=== PATIENT | male | born 1940 | race Caucasian/White ===

== ENCOUNTER 2017-08-10 08:57 | Emergency (ER) | payer OTHER ==
[2017-08-10] MEDS ORDERED: NA CHLORIDE 0.9% 1,000 ML ONE (09:01)
[2017-08-10] MEDS ORDERED: ADENOSINE 6 MG/ 2ML VIAL IV ONE (09:01)
[2017-08-10 09:25] LABS: Absolute Lymphocytes (CBC) 4.4 K/uL (0.7-4.9); Absolute Monocytes 0.7 K/uL (0.1-1.3); Absolute Neutrophil 4.9 K/uL (1.8-8.0); Basophils % 1.3 % (0-1.3); Eosinophils % 12.5 % (0-4.4); Hematocrit 43.2 % (39.6-49.0); Lymphocytes % 37.7 % (15.3-44.8); MCH 29.9 pg (27.0-35.0); MCV 89.8 fL (80-100); MPV 8.4 fL (7.6-11.3); Monocytes % 6.2 % (3.3-12.3); RBC Red Blood Cell Count 4.81 M/uL (4.33-5.43)
[2017-08-10 09:40] LABS: Protime INR 1.03
[2017-08-10 09:50] LABS: Albumin 4.2 g/dL (3.2-5.5); Bilirubin Direct 0.1 mg/dL (0-0.2); Bilirubin Total 0.5 mg/dL (0.3-1.2); Magnesium 1.9 mg/dL (1.8-2.5); Protein, Total 7.7 g/dL (6.0-8.3)
--- NOTE | 2017-08-10 10:03 | EKG ---
Test Date: 2017-08-10 Test Time: 08:59:33 Trap Operator: MEASUREMENT RESULTS: Intervals: Rate: 155 HI: QRSD: 92 QT: 286 QTc: 459 [place]: P: HI: QRS: 40 T: 59 INTERPRETIVE STATEMENTS: Supraventricular tachycardia Nonspecific ST abnormality Abnormal ECG No previous ECG available for comparison Electronically Signed On 08-10-17 10:02:48 CDT by Chuck Chavez
[2017-08-10 10:13] LABS: Urine Blood NEGATIVE (NEG); Urine Glucose NEGATIVE (NEG); Urine Protein NEGATIVE (NEG); Urine Specific Gravity 1.015 (1.005-1.030); Urine pH 6.5 (5.0-7.0)
--- NOTE | 2017-08-10 10:13 | RAD REPORT ---
EXAM DESCRIPTION: RAD - Chest Single View - 08/10/2017 9:31 am CLINICAL HISTORY: Chest pain COMPARISON: None. TECHNIQUE: AP portable chest image was obtained 0926 hours . FINDINGS: Lungs are clear. No failure, infiltrate or pulmonary edema findings. Left subclavian pacem ray is in place. Tubing overlying the right chest presumed to be a MEDICAL PAYMENT POSTER shunt. Resuscitation paddle ov erlies the upper right chest. Heart and vasculature are normal. No measurable pleural effusion and no pneumothorax. No gross bony abnormality seen. No acute aortic findings suspected. IMPRESSION: No pulmonary edema, infiltrate or other acute cardiopulmonary finding.
--- NOTE | 2017-08-10 10:37 | ER ---
Nurse's Notes [facility] Name: Bony De Santiago Sr Age: 76 yrs Sex: Male : 1940 Arrival Date: 08/10/2017 Time: 09:01 Bed 4 Private MD: Unknown, Unknown Diagnosis: Supraventricular tachycardia Presentation: 08/10 09:00 Onset of symptoms was August 10, 2017 at 08:00. Risk Assessment: Do you want to hurt ae1 yourself or someone else? Patient reports no desire to harm self or others. Initial Sepsis Screen: Does the patient meet any 2 criteria? RR > 20 per min. HR > 90 bpm. Does the patient have a suspected source of infection? No. Patient's initial sepsis screen is negative. Care prior to arrival: Patient took "1/2" a lisinopril and all his daily medications. 09:21 Presenting complaint: Patient states: Patient reports chest pain and 'racing heart ae1 rate" Patient has pacemaker implanted. Transition of care: patient was not received from another setting of care. 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 - Social history:: Smoking status: Patient/guardian denies using tobacco, but has a distant history of tobacco abuse. - Ebola Screening: : Patient negative for fever greater than or equal to 101.5 degrees Fahrenheit, and additional compatible Ebola Virus Disease symptoms Patient denies exposure to infectious person. Screenin:27 Abuse screen: Denies threats or abuse. Nutritional screening: No deficits noted. rv Tuberculosis screening: No symptoms or risk factors identified. 09:39 Fall Risk Fall in past 12 months (25 points). No secondary diagnosis (0 pts). IV access ae1 (20 points). Ambulatory Aid- None/Bed Rest/Nurse Assist (0 pts). Gait- Normal/Bed Rest/Wheelchair (0 pts) Mental Status- Oriented to own ability (0 pts). Assessment: 09:00 General: Appears distressed, uncomfortable, Behavior is cooperative, anxious, restless. ae1 Pain: Complains of pain in chest. Neuro: Level of Consciousness is awake, alert, obeys commands, Oriented to person, place, time, situation. Cardiovascular: Heart tones S1 S2 present muffled Rhythm is SVT. Respiratory: Airway is patent Respiratory effort is even, unlabored, Respiratory pattern is regular, symmetrical, Breath sounds are clear bilaterally. GI: Abdomen is round non-distended, Bowel sounds present X 4 quads. Abd is soft and non tender X 4 quads. : No signs and/or symptoms were reported regarding the genitourinary system. EENT: Oral mucosa is dry. Poor dentition noted. Derm: Skin is pale. Musculoskeletal: No signs and/or symptoms reported regarding the musculoskeletal system. 09:31 Pain: Complains of pain in chest Pain does not radiate. Pain began suddenly, 1 hour ae1 ago. Cardiovascular: Reports chest pain, diaphoresis, palpitations, racing HR. 09:37 Reassessment: Patient appears in no apparent distress at this time. Patient states ae1 feeling better. Patient states symptoms have improved. Pain: Denies pain. 10:21 Reassessment: Patient appears in no apparent distress at this time. Patient and/or tw2 family updated on plan of care and expected duration. Pain level reassessed. Patient is alert, oriented x 3, equal unlabored respirations, skin warm/dry/pink. Patient states feeling better. Patient states symptoms have improved. Vital Signs: 08:57 BP 123 / 75; Pulse 159; Resp 30; Temp 97.9; Weight 90.26 kg (R); ae1 09:04 BP 137 / 70; Pulse 106; Resp 15; Pulse Ox 100% on 3 lpm NC; ae1 09:06 BP 127 / 63; Pulse 67; Resp 15; Pulse Ox 100% on 1 lpm NC; ae1 09:39 BP 116 / 63; Pulse 90; Resp 22 S; Pulse Ox 98% on 1 lpm NC; ae1 10:21 BP 104 / 55; Pulse 64; Resp 12; Pulse Ox 98% on R/A; tw2 ED Course: 08:59 batch dumper on. Pulse ox on. NIBP on. Defibrillator pads applied. rv 08:59 Inserted saline lock: 20 gauge in left antecubital area, using aseptic technique. Blood ae1 collected. 09:01 Patient arrived in ED. mr 09:02 Unknown, Unknown is Private Physician. mr 09:04 EKG done, by photographic technician. 3 09:10 Alexandre Musa PA is PHCP. jr8 09:10 Pablo Whitney MD is Attending Physician. jr8 09:12 David Sanchez, RN is Primary Nurse. ae1 09:22 Triage completed. ae1 09:27 X-ray completed. Portable x-ray completed in exam room. Patient tolerated procedure kp1 well. 09:27 Arm band placed on right wrist. EKG completed in triage. Results shown to MD. rv 09:28 Placed in gown. Bed in low position. Call light in reach. Side rails up X2. Adult w/ rv patient. 09:30 XRAY Chest (1 view) In Process Unspecified. EDMS 09:30 Oxygen administration via nasal cannula \\T\\ 1L/min. ae1 10:41 Awaiting transportation, Awaiting: prior to discharge. tw2 Administered Medications: 09:01 Drug: NS 0.9% 1000 ml Route: IV; Rate: 1000 ml; Site: left antecubital; ae1 09:55 Follow up: IV Status: Completed infusion ae1 09:01 Drug: Adenosine 12 mg Route: IVP; Site: left antecubital; ae1 09:16 Follow up: Response: Other; HR converted from SVT at 159 bpm, to 62 bpm. ae1 Intake: Outcome: 10:36 Discharge ordered by . jr8 11:22 Patient left the ED. tw2 Signatures: Dispatcher [employer] EDCA Valerie Mckeon mr Alexandre Musa PA PA jr8 Mari Fermin, RN RN tw2 David Sanchez, RN RN ae1 Luanne Dubois kp1 Radha Boyle 3 Alfredo Reyes RN RN rv Corrections: (The following items were deleted from the chart) 09:25 09:21 Acuity: JODIE 2 ae1 rv 09:29 08:57 Inserted saline lock: 20 gauge in left antecubital area, using aseptic technique. rv Blood collected. rv
--- NOTE | 2017-08-10 10:37 | EDPHYS ---
Physician Documentation [facility] Name: Boyn De Santiago Sr Age: 76 yrs Sex: Male : 1940 Arrival Date: 08/10/2017 Time: 09:01 Bed 4 Private MD: Unknown, Unknown ED Physician Pablo Whitney HPI: 08/10 09:14 This 76 yrs old Male presents to ER via Ambulatory with complaints of jr8 palpitations. 09:14 The patient presents with a history of heart racing. Context: The symptoms occur at jr8 rest. Onset: The symptoms/episode began/occurred acutely, today. Duration: The patient or guardian reports a single episode, that is still ongoing. Modifying factors: The symptoms are aggravated by nothing. The symptoms are alleviated by nothing. Associated signs and symptoms: Pertinent positives: chest pain, SOB, near-syncope. Severity of symptoms: At their worst the symptoms were moderate in the emergency department the symptoms are unchanged. The patient has experienced similar episodes in the past, a few times, today not going away. The patient has not recently seen a physician. Patient recently with cardiac pacemaker implantation about 6 weeks ago from what sounds like sick sinus syndrome. Stated that he will episodically have SVT but usually is able to cough and get it to go away. Today was unable to do so . 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 - Social history:: Smoking status: Patient/guardian denies using tobacco, but has a distant history of tobacco abuse. - Ebola Screening: : Patient negative for fever greater than or equal to 101.5 degrees Fahrenheit, and additional compatible Ebola Virus Disease symptoms Patient denies exposure to infectious person. ROS: 09:14 Eyes: Negative for injury, pain, redness, and discharge, ENT: Negative for injury, jr8 pain, and discharge, Neck: Negative for injury, pain, and swelling, Abdomen/GI: Negative for abdominal pain, nausea, vomiting, diarrhea, and constipation, Back: Negative for injury and pain, MS/Extremity: Negative for injury and deformity, Skin: Negative for injury, rash, and discoloration. 09:14 Cardiovascular: Positive for chest pain, Negative for edema, orthopnea, palpitations, paroxysmal nocturnal dyspnea. 09:14 Respiratory: Positive for shortness of breath, Negative for cough, hemoptysis, sputum production, wheezing. 09:14 Neuro: Positive for dizziness, near syncope. Exam: 09:14 Eyes: Pupils equal round and reactive to light, extra-ocular motions intact. Lids and jr8 lashes normal. Conjunctiva and sclera are non-icteric and not injected. Cornea within normal limits. Periorbital areas with no swelling, redness, or edema. ENT: Nares patent. No nasal discharge, no septal abnormalities noted. Tympanic membranes are normal and external auditory canals are clear. Oropharynx with no redness, swelling, or masses, exudates, or evidence of obstruction, uvula midline. Mucous membranes moist. Neck: Trachea midline, no thyromegaly or masses palpated, and no cervical lymphadenopathy. Supple, full range of motion without nuchal rigidity, or vertebral point tenderness. No Meningismus. Respiratory: Lungs have equal breath sounds bilaterally, clear to auscultation and percussion. No rales, rhonchi or wheezes noted. No increased work of breathing, no retractions or nasal flaring. Abdomen/GI: Soft, non-tender, with normal bowel sounds. No distension or tympany. No guarding or rebound. No evidence of tenderness throughout. Back: No spinal tenderness. No costovertebral tenderness. Full range of motion. Skin: Warm, dry with normal turgor. Normal color with no rashes, no lesions, and no evidence of cellulitis. MS/ Extremity: Pulses equal, no cyanosis. Neurovascular intact. Full, normal range of motion. Neuro: Awake and alert, GCS 15, oriented to person, place, time, and situation. Cranial nerves II-XII grossly intact. Motor strength 5/5 in all extremities. Sensory grossly intact. Cerebellar exam normal. Normal gait. 09:14 Cardiovascular: Rate: tachycardic, actual rate is 160 bpm, Rhythm: irregular, Pulses: Pulses are 1+ in right radial artery and left radial artery. thready, weak, Heart sounds: normal, normal S1and S2, no S3 or S4, no murmur, no rub, no gallop, Edema: is not appreciated, JVD: is not appreciated. Vital Signs: 08:57 BP 123 / 75; Pulse 159; Resp 30; Temp 97.9; Weight 90.26 kg (R); ae1 09:04 BP 137 / 70; Pulse 106; Resp 15; Pulse Ox 100% on 3 lpm NC; ae1 09:06 BP 127 / 63; Pulse 67; Resp 15; Pulse Ox 100% on 1 lpm NC; ae1 09:39 BP 116 / 63; Pulse 90; Resp 22 S; Pulse Ox 98% on 1 lpm NC; ae1 10:21 BP 104 / 55; Pulse 64; Resp 12; Pulse Ox 98% on R/A; tw2 MDM: 09:10 Patient medically screened. jr8 09:14 ED course: Patient given 12 of adenosine with resolution of symptoms. Sinus rhythm jr8 currently . 10:28 Data reviewed: vital signs, nurses notes, lab test result(s), EKG, radiologic studies, jr8 plain films, and as a result, I will discharge patient. Data interpreted: Pulse oximetry: on room air is 98 %. Interpretation: normal. Counseling: I had a detailed discussion with the patient and/or guardian regarding: the historical points, exam findings, and any diagnostic results supporting the discharge/admit diagnosis, lab results, radiology results, the need for outpatient follow up, a phlebotomy instructor, to return to the emergency department if symptoms worsen or persist or if there are any questions or concerns that arise at home. Response to treatment: the patient's symptoms have resolved after treatment. ED course: Patient remains stable. Has not gone back into SVT. [facility] . 13:00 ED course: I had a detailed conversation with Mr. Musa regarding the presentation, kdr assessment, evaluation, treatment and plan for discharge.. 08/10 09:11 Order name: Basic Metabolic Panel; Complete Time: 10:01 8 08/10 09:11 Order name: BNP; Complete Time: 10:27 8 08/10 09:11 Order name: CBC with Diff; Complete Time: 09:33 08/10 09:11 Order name: LFT's; Complete Time: 10:08/10 09:11 Order name: Magnesium; Complete Time: 10:08/10 09:11 Order name: PT-INR; Complete Time: 09:42 08/10 09:11 Order name: Ptt, Activated; Complete Time: 09:42 08/10 09:11 Order name: Troponin (emerg Dept Use Only); Complete Time: 10:08/10 09:11 Order name: XRAY Chest (1 view); Complete Time: 10:08/10 09:11 Order name: EKG; Complete Time: 09:08/10 09:11 Order name: Cardiac monitoring; Complete Time: :08/10 09:57 Order name: Urine Dipstick--Ancillary (enter results); Complete Time: 10: 08/10 09:11 Order name: EKG - Nurse/Tech; Complete Time: 09:08/10 09:11 Order name: IV Saline Lock; Complete Time: 09:08/10 09:11 Order name: Labs collected and sent; Complete Time: 09:08/10 09:11 Order name: O2 Per Protocol; Complete Time: 09:08/10 09:11 Order name: O2 Sat Monitoring; Complete Time: 09:08/10 09:11 Order name: Urine Dipstick-Ancillary (obtain specimen); Complete Time: 09:55 Administered Medications: 09:01 Drug: NS 0.9% 1000 ml Route: IV; Rate: 1000 ml; Site: left antecubital; ae1 09:55 Follow up: IV Status: Completed infusion ae1 09:01 Drug: Adenosine 12 mg Route: IVP; Site: left antecubital; ae1 09:16 Follow up: Response: Other; HR converted from SVT at 159 bpm, to 62 bpm. ae1 Disposition: 13:07 Co-signature as Attending Physician, Pablo Whitney MD I agree with the assessment and kdr plan of care. Disposition: 08/10/17 10:36 Discharged to Home. Impression: Supraventricular tachycardia. - Condition is Stable. - Discharge Instructions: Electrical Cardioversion, Pharmaceutical Cardioversion, Paroxysmal Supraventricular Tachycardia. - Medication Reconciliation Form, Thank You Letter, Antibiotic Education, Prescription Opioid Use form. - Follow up: Private Physician; When: Today; Reason: Recheck today's complaints, Continuance of care, Re-evaluation by your physician. - Problem is new. - Symptoms have improved. Signatures: Dispatcher [employer] EDMS Pablo Whitney MD MD [facility] Alexandre Musa PA PA jr8 Mari Fermin RN RN tw2 David Sanchez RN RN ae1 Corrections: (The following items were deleted from the chart) 09:17 09:14 This 76 yrs old Male presents to ER via Unassigned with complaints of jr8 Chest Pain. jr8 11:22 10:36 08/10/2017 10:36 Discharged to Home. Impression: Supraventricular tachycardia. tw2 Condition is Stable. Forms are Medication Reconciliation Form, Thank You Letter, Antibiotic Education, Prescription Opioid Use. Follow up: Private Physician; When: Today; Reason: Recheck today's complaints, Continuance of care, Re-evaluation by your physician. Problem is new. Symptoms have improved. jr8
== END 2017-08-10 11:22 | disposition home or self-care (01) ==
LOC: ER 08:57
DX: I47.1 Supraventricular tachycardia (principal); Z95.0 Presence of cardiac pacemaker; I10 Essential (primary) hypertension; E78.5 Hyperlipidemia, unspecified; Z79.82 Long term (current) use of aspirin
CPT/HCPCS: 36415; 71045; 80048; 80076; 81003; 83735; 83880; 84484; 85025; 85610; 85730; 93005; 96361; 96374; 99291; J0153; J7030

== ENCOUNTER 2021-07-03 23:22 | Inpatient (IN) | payer OTHER ==
[2021-07-04] MEDS ORDERED: MORPHINE 4 MG/ML SYR ONE (00:18)
[2021-07-04] MEDS ORDERED: ONDANSETRON 4 MG/2 ML VIAL ONE ×2 (00:18→02:47)
[2021-07-04] MEDS ORDERED: NA CHLORIDE 0.9% 500 ML ONE ×2 (00:19→02:47)
[2021-07-04 00:26] LABS: Absolute Lymphocytes (CBC) 1.6 K/uL (0.7-4.9); Hematocrit 38.9 % (39.6-49.0); Lymphocytes % 22.9 % (15.3-44.8); MPV 7.8 fL (7.6-11.3); RBC Red Blood Cell Count 4.22 M/uL (4.33-5.43)
[2021-07-04 00:39] LABS: Albumin 3.5 g/dL (3.4-5.0); Bilirubin Total 0.3 mg/dL (0.2-1.0); Potassium 4.1 mmol/L (3.5-5.1); Troponin High Sensitivity 4.6 pg/mL (<58.9)
[2021-07-04 01:13] LABS: SARS-COV-2 RT PCR NEGATIVE (NEGATIVE)
--- NOTE | 2021-07-04 01:54 | EDPHYS ---
Physician Documentation [facility] Name: Bony De Santiago Sr Age: 80 yrs Sex: Male : 1940 Arrival Date: 07/03/2021 Time: 23:24 Bed 8 Private MD: ED Physician Javi Duque HPI: 07/03 23:47 This 80 yrs old Male presents to ER via Wheelchair with complaints of Abdominal Pain. rn 23:47 The patient presents with abdominal pain in the epigastric area. Onset: The rn symptoms/episode began/occurred just prior to arrival. The symptoms radiate to right back. Associated signs and symptoms: Pertinent positives: nausea and vomiting, diarrhea, Pertinent negatives: blood in stools, fever, hematuria, shortness of breath, vomiting blood. The symptoms are described as steady. Modifying factors: The symptoms are alleviated by nothing, the symptoms are aggravated by touching the area. Severity of pain: At its worst the pain was moderate in the emergency department the pain is unchanged. The patient has not experienced similar symptoms in the past. The patient has not recently seen a physician. Reports sudden onset of upper abd pain, + vomiting, no hematemesis, no blood in stool. No fever. Denies chest pain. Pain radiate to right back.. Historical: - Allergies: 23:41 No Known Allergies; jb4 - PMHx: 23:41 Hyperlipidemia; Hypertension; jb4 - PSHx: 23:41 abdominal stents; pacemaker; jb4 - Immunization history:: Adult Immunizations up to date. - Social history:: Smoking status: unknown. - Family history:: not pertinent. - Hospitalizations: : No recent hospitalization is reported. ROS: 23:47 Constitutional: Negative for fever, chills, and weight loss, Eyes: Negative for injury, rn pain, redness, and discharge, Neck: Negative for injury, pain, and swelling, Cardiovascular: Negative for chest pain, palpitations, and edema, Respiratory: Negative for shortness of breath, cough, wheezing, and pleuritic chest pain, Abdomen/GI: + epigastric abd pain, + nausea/vomiting Back: Negative for injury : Negative for injury, bleeding, discharge, and swelling, MS/Extremity: Negative for injury and deformity, Skin: Negative for injury, rash, and discoloration, Neuro: Negative for headache, weakness, numbness, tingling, and seizure. Exam: 23:47 Constitutional: This is a well developed, well nourished patient who is awake, alert, rn and in no acute distress. Head/Face: Normocephalic, atraumatic. Eyes: Periorbital areas with no swelling, redness, or edema. Cardiovascular: Regular rate and rhythm. No pulse deficits. Respiratory: No increased work of breathing, no retractions or nasal flaring. Abdomen/GI: soft, + epigastric tenderness with guarding, no rebound Skin: Warm, dry MS/ Extremity: Pulses equal, no cyanosis. Neuro: Awake and alert, GCS 15, oriented to person, place, time, and situation. Cranial nerves II-XII grossly intact. Motor strength 5/5 in all extremities. Sensory grossly intact. Vital Signs: 23:47 BP 154 / 63; Pulse 69; Resp 16; Temp 97.2(TE); Pulse Ox 99% on R/A; Weight 78.47 kg jb4 (R); Height 5 ft. 9 in. (175.26 cm) (R); Pain 8/10; 07/04 00:35 BP 142 / 68; Pulse 62; Resp 18 S; Pulse Ox 100% on R/A; as6 03:00 BP 138 / 67; Pulse 61; Resp 18 S; Pulse Ox 98% on R/A; as6 20:56 BP 128 / 62; Pulse 65; Resp 18; Pulse Ox 98% on R/A; ll3 07/03 23:47 Body Mass Index 25.55 (78.47 kg, 175.26 cm) jb4 MDM: 07/03 23:27 Patient medically screened. rn 07/04 01:52 Differential diagnosis: appendicitis, bowel obstruction, diverticulitis, gastritis, rn non-specific abd pain, pancreatitis, Peptic Ulcer Disease, enteritis. Data reviewed: vital signs, nurses notes, lab test result(s), radiologic studies, CT scan, and as a result, I will admit patient. Counseling: I had a detailed discussion with the patient and/or guardian regarding: the historical points, exam findings, and any diagnostic results supporting the discharge/admit diagnosis, lab results, radiology results, the need for further work-up and treatment in the hospital. Response to treatment: the patient's symptoms have markedly improved after treatment, and as a result, I will discharge patient. Admission orders: after a detailed discussion of the patient's condition and case, the admit orders are written by me. ED course: No further vomiting since arrival, still uncomfortable, ct shows ileus vs partial obstruction, possible enteritis, will admit to hospitalist service with surgical and GI consult.. 07/03 23:44 Order name: CBC with Diff; Complete Time: 00:37 rn 07/03 23:44 Order name: CMP; Complete Time: 01:10 rn 07/03 23:44 Order name: Lipase; Complete Time: 01:10 rn 07/03 23:44 Order name: COVID-19/FLU A+B (Document "Date of Onset" if Symptomatic); Complete Time: rn :07/03 23:44 Order name: Troponin HS; Complete Time: 01:10 rn 07/04 03:01 Order name: Urine Dipstick-Ancillary; Complete Time: 03:07 EDRI 07/03 23:44 Order name: Abdomen Limited US rn 07/03 23:44 Order name: CT Abd/Pelvis - IV Contrast Only rn 07/04 11:54 Order name: RAD EDRI 07/03 23:44 Order name: IV Saline Lock; Complete Time: 00:11 rn 07/03 23:44 Order name: Labs collected and sent; Complete Time: 00:11 rn 07/03 23:44 Order name: Urine Dipstick-Ancillary (obtain specimen); Complete Time: 03:00 rn 07/03 23:44 Order name: EKG; Complete Time: 23:45 rn 07/03 23:44 Order name: EKG - Nurse/Tech; Complete Time: 00:34 rn Administered Medications: 00:30 Drug: Zofran (Ondansetron) 4 mg Route: IVP; Site: right antecubital; as6 04:19 Follow up: Response: No adverse reaction as6 00:30 Drug: morphine 4 mg Route: IVP; Site: right antecubital; as6 04:18 Follow up: Response: No adverse reaction; RASS: Alert and Calm (0) as6 00:30 Drug: NS 0.9% 500 ml Route: IV; Rate: bolus; Site: right antecubital; as6 04:19 Follow up: Response: No adverse reaction; IV Status: Completed infusion; IV Intake: as6 500ml 02:54 Drug: Zofran (Ondansetron) 4 mg Route: IVP; Site: right antecubital; as6 04:18 Follow up: Response: No adverse reaction as6 02:55 Drug: Zosyn (piperacillin-tazobactam) 3.375 grams Route: IVPB; Infused Over: 60 mins; as6 Site: right antecubital; 04:18 Follow up: Response: No adverse reaction; IV Status: Completed infusion; IV Intake: as6 100ml 02:55 Drug: NS 0.9% 500 ml Route: IV; Rate: bolus; Site: right antecubital; as6 04:18 Follow up: Response: No adverse reaction; IV Status: Completed infusion; IV Intake: as6 500ml 02:55 Drug: morphine 2 mg Route: IVP; Site: right antecubital; as6 04:18 Follow up: Response: No adverse reaction; RASS: Alert and Calm (0) as6 Disposition Summary: 07/04/21 01:53 Hospitalization Ordered Hospitalization Status: Inpatient Admission rn Provider: Marcos Duque rn Condition: Stable rn Problem: new rn Symptoms: have improved rn Bed/Room Type: Standard rn Location: Telemetry/MedSurg (Inpatient)(07/04/21 20:30) cg Room Assignment: [facility](07/04/21 20:30) Diagnosis - Ileus, unspecified rn - Partial bowel obstruction rn - Nausea with vomiting, unspecified rn Forms: - Medication Reconciliation Form rn - SBAR form rn Signatures: Dispatcher [employer] EDMS Javi Duque MD MD rn Attema, Lee, FNP-C FNP-Cla1 Melissa Lucas RN RN cg Jimy Yuan, RN RN jb4 Bob Drew RN RN as6 Corrections: (The following items were deleted from the chart) 02:04 01:53 Telemetry/MedSurg (Inpatient) rn cg 02:04 01:53 rn cg 20:30 02:04 [facility] [place] ER HOLD cg cg 20:30 02:04 ERHOLD- cg cg
--- NOTE | 2021-07-04 01:54 | ER ---
Nurse's Notes [facility] Name: Bony De Santiago Sr Age: 80 yrs Sex: Male : 1940 Arrival Date: 07/03/2021 Time: 23:24 Bed 8 Private MD: Diagnosis: Ileus, unspecified;Partial bowel obstruction;Nausea with vomiting, unspecified Presentation: 07/03 23:40 Chief complaint: Patient states: He started having abdominal pain and vomiting about jb4 2230. Coronavirus screen: At this time, the client does not indicate any symptoms associated with coronavirus-19. Ebola Screen: No symptoms or risks identified at this time. Initial Sepsis Screen:. Risk Assessment: Do you want to hurt yourself or someone else? Patient reports no desire to harm self or others. Onset of symptoms was July 03, 2021. Transition of care: patient was not received from another setting of care. 23:40 Method Of Arrival: Wheelchair jb4 23:40 Acuity: JODIE 3 jb4 23:47 Initial Sepsis Screen: Does the patient meet any 2 criteria? No. Patient's initial jb4 sepsis screen is negative. Does the patient have a suspected source of infection? No. Patient's initial sepsis screen is negative. Historical: - Allergies: 23:41 No Known Allergies; jb4 - PMHx: 23:41 Hyperlipidemia; Hypertension; jb4 - PSHx: 23:41 abdominal stents; pacemaker; jb4 - Immunization history:: Adult Immunizations up to date. - Social history:: Smoking status: unknown. - Family history:: not pertinent. - Hospitalizations: : No recent hospitalization is reported. Screenin/17 00:13 Abuse screen: Denies threats or abuse. Denies injuries from another. Nutritional as6 screening: No deficits noted. Tuberculosis screening: No symptoms or risk factors identified. Fall Risk None identified. Assessment: 00:12 General: Appears in no apparent distress. Behavior is calm, cooperative. Pain: as6 Complains of pain in epigastric area, right upper quadrant and left upper quadrant. Neuro: Level of Consciousness is awake, alert, obeys commands, Oriented to person, place, time, situation. Cardiovascular: Capillary refill < 3 seconds Patient's skin is warm and dry. Respiratory: Airway is patent Trachea midline Respiratory effort is even, unlabored, Respiratory pattern is regular, symmetrical. GI: Abd is soft Reports upper abdominal pain, nausea, vomiting. Vital Signs: 07/03 23:47 BP 154 / 63; Pulse 69; Resp 16; Temp 97.2(TE); Pulse Ox 99% on R/A; Weight 78.47 kg jb4 (R); Height 5 ft. 9 in. (175.26 cm) (R); Pain 8/10; 07/04 00:35 BP 142 / 68; Pulse 62; Resp 18 S; Pulse Ox 100% on R/A; as6 03:00 BP 138 / 67; Pulse 61; Resp 18 S; Pulse Ox 98% on R/A; as6 20:56 BP 128 / 62; Pulse 65; Resp 18; Pulse Ox 98% on R/A; ll3 07/03 23:47 Body Mass Index 25.55 (78.47 kg, 175.26 cm) jb4 ED Course: 07/03 23:24 Patient arrived in ED. bp1 23:27 Javi Duque MD is Attending Physician. rn 23:41 Triage completed. jb4 23:41 Arm band placed on right wrist. jb4 23:43 Bob Drew, SON is Primary Nurse. as6 07/04 00:11 Abdomen Limited US In Process Unspecified. EDMS 00:11 Inserted saline lock: 20 gauge in right antecubital area, using aseptic technique. as6 Blood collected. 00:11 COVID-19/FLU A+B (Document "Date of Onset" if Symptomatic) Sent. as6 00:11 Troponin HS Sent. as6 00:11 Lipase Sent. as6 00:11 CMP Sent. as6 00:11 CBC with Diff Sent. as6 00:13 Bed in low position. Call light in reach. Side rails up X2. Adult w/ patient. Pulse ox as6 on. NIBP on. 01:07 CT Abd/Pelvis - IV Contrast Only In Process Unspecified. EDMS 01:53 Marcos Duque MD is Hospitalizing Provider. rn 04:17 No provider procedures requiring assistance completed. Patient admitted, IV remains in as6 place. Administered Medications: 00:30 Drug: Zofran (Ondansetron) 4 mg Route: IVP; Site: right antecubital; as6 04:19 Follow up: Response: No adverse reaction as6 00:30 Drug: morphine 4 mg Route: IVP; Site: right antecubital; as6 04:18 Follow up: Response: No adverse reaction; RASS: Alert and Calm (0) as6 00:30 Drug: NS 0.9% 500 ml Route: IV; Rate: bolus; Site: right antecubital; as6 04:19 Follow up: Response: No adverse reaction; IV Status: Completed infusion; IV Intake: as6 500ml 02:54 Drug: Zofran (Ondansetron) 4 mg Route: IVP; Site: right antecubital; as6 04:18 Follow up: Response: No adverse reaction as6 02:55 Drug: Zosyn (piperacillin-tazobactam) 3.375 grams Route: IVPB; Infused Over: 60 mins; as6 Site: right antecubital; 04:18 Follow up: Response: No adverse reaction; IV Status: Completed infusion; IV Intake: as6 100ml 02:55 Drug: NS 0.9% 500 ml Route: IV; Rate: bolus; Site: right antecubital; as6 04:18 Follow up: Response: No adverse reaction; IV Status: Completed infusion; IV Intake: as6 500ml 02:55 Drug: morphine 2 mg Route: IVP; Site: right antecubital; as6 04:18 Follow up: Response: No adverse reaction; RASS: Alert and Calm (0) as6 Intake: 04:18 IV: 500ml; Total: 500ml. as6 04:18 IV: 100ml; Total: 600ml. as6 04:19 IV: 500ml; Total: 1100ml. as6 Outcome: 01:53 Decision to Hospitalize by Provider. rn 04:17 Admitted to ER Hold. Please see [facility] for further documentation. as6 04:17 Condition: stable 22:04 Admitted to Med/surg Report called to report called to 2nd floor by charge nurse. ll3 07/05 00:00 Patient left the ED. tw5 Signatures: Dispatcher [employer] EDMS Javi Duque MD MD rn Bryson, James RN RN jb4 Kalyn Bynum Tiffany tw5 Bob Drew RN RN as6 Danyelle Luna RN RN ll3
--- NOTE | 2021-07-04 02:28 | P.HP ---
Certification for Inpatient Patient admitted to: Inpatient With expected LOS: >2 Midnights Patient will require the following post-hospital care: None Practitioner: I am a practitioner with admitting privileges, knowledge of patient current condition, hospital course, and medical plan of care. Services: Services provided to patient in accordance with Admission requirements found in Title 42 Section 412.3 of the Code of Federal Regulations <Chinmay Medrano - Last Filed: 07/04/21 02:24> Patient History Date of Service: 07/04/21 Reason for admission: SBO History of Present Illness: 80-year-old male with history of hypertension, hyperlipidemia, previous pituitary tumor/pseudotumor cerebri presents emergency department for abdominal pain and vomiting. Patient reports that his pain began around 2200 this evening severe left-sided abdominal pain upon arrival to the ER patient vomited once, denies similar episodes in the past only abdominal surgeries or placement of ventriculoperitoneal shunts. Patient was evaluated in the emergency department his labs were remarkable for mild hemoconcentration and stable CKD 3. He had a CT abdomen pelvis with contrast which demonstrated mildly prominent small loops of bowel within the proximal left flank/left lower quadrant area with a small focal area of transition within the right lower quadrant which could correspond to ileus versus partial small bowel obstruction. Also noted are the presence of ventricular peritoneal shunts. Patient still with mild to moderate abdominal pain, mild left-sided abdominal tenderness no further episodes of vomiting or significant distention at this time. ED provider wishes to admit for further evaluation and management of suspected rectal small bowel obstruction versus ileus. 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) -: Pacemaker -: Multiple surgeries for squamous cell carcinoma Psychosocial/ Personal History: Patient is retired, lives at home with his - Family History Father -: Cancer Mother -: Cancer Brother -: Cancer - Social History Smoking Status: Former smoker Alcohol use: Yes CD- Drugs: No Caffeine use: Yes Place of Residence: Home <Chinmay Medrano - Last Filed: 07/04/21 02:24> Date of Service: 07/04/21 <Marcos Duque - Last Filed: 07/04/21 18:21> Allergies No Known Allergies Allergy (Unverified 08/10/17 11:26) Review of Systems 10-point ROS is otherwise unremarkable Gastrointestinal: Vomiting, Abdominal Pain <Chinmay Medrano - Last Filed: 07/04/21 02:24> Physical Examination - Physical Exam General: Alert, In no apparent distress, Oriented x3 HEENT: Atraumatic, PERRLA, Mucous membr. moist/pink, EOMI, Sclerae nonicteric Neck: Supple, 2+ carotid pulse no bruit, No LAD, Without JVD or thyroid abnormality Respiratory: Clear to auscultation bilaterally, Normal air movement Cardiovascular: Regular rate/rhythm, Normal S1 S2 Gastrointestinal: Normal bowel sounds, No tenderness Musculoskeletal: No tenderness Integumentary: No rashes Neurological: Normal speech, Normal strength at 5/5 x4 extr, Normal tone, Normal affect - Studies Laboratory Data (last 24 hrs) 07/04/21 00:08: Sodium 140, Potassium 4.1, BUN 20 H, Creatinine 1.44 H, Glucose 121 H, Total Bilirubin 0.3, AST 13 L, ALT 21, Alkaline Phosphatase 60, Lipase 145 07/04/21 00:08: WBC 7.2, Hgb 13.1 L, Hct 38.9 L, Plt Count 158 <Chinmay Medrano - Last Filed: 07/04/21 02:24> - Studies Laboratory Data (last 24 hrs) 07/04/21 00:08: Sodium 140, Potassium 4.1, BUN 20 H, Creatinine 1.44 H, Glucose 121 H, Total Bilirubin 0.3, AST 13 L, ALT 21, Alkaline Phosphatase 60, Lipase 145 07/04/21 00:08: WBC 7.2, Hgb 13.1 L, Hct 38.9 L, Plt Count 158 <Marcos Duque - Last Filed: 07/04/21 18:21> Assessment and Plan - Plan Assessment: Abdominal pain, vomiting secondary to suspected partial small bowel obstruction versus ileus Hypertension Hyperlipidemia Plan: Abdominal pain, vomiting secondary to suspected partial small bowel obstruction versus ileus: N.p.o., IVF, IV antibiotics, encourage ambulation with blood precautions, as needed pain medication and antiemetics. General surgery consult in place consider GI consult if this is believed to be more likely ileus. KUB ordered for tomorrow morning. Last bowel movement 07/04/2019 2 in the morning, normal for patient. Hypertension: Hold oral medications at this time, restart when appropriate. As needed antihypertensives. Hyperlipidemia: Hold oral medications at this time, restart when appropriate. DVT PPX: Lovenox Code status: Full Discharge Plan: Home Plan to discharge in: 72 Hours - Advance Directives Does patient have a Living Will: No Does patient have a Durable POA for Healthcare: No - Code Status/Comfort Care Code Status Assessed: Yes (Full code) Critical Care: No Time Spent Managing Pts Care (In Minutes): 55 <Chinmay Medrano - Last Filed: 07/04/21 02:24> - Plan Agree with plan of care as noted above Patient seen and examined earlier this morning on rounds Reported some slight improvement, had mild upper abdominal tenderness, soft No flatus/BM overnight General surgery consulted Follow-up KUB <Marcos Duque - Last Filed: 07/04/21 18:21>
[2021-07-04] MEDS ORDERED: MORPHINE 2 MG/ML SYR ONE (02:47)
[2021-07-04] MEDS ORDERED: NA CHLORIDE 0.9% 100 ML IV ONE ×3 (02:48→18:48)
[2021-07-04] MEDS ORDERED: PIPERACIL/TAZO 3.375 GM VIAL IV ONE ×3 (02:48→18:48)
[2021-07-04 03:01] LABS: Urine Blood Negative (Negative); Urine Glucose Negative (Negative); Urine Protein Negative (Negative); Urine Specific Gravity 1.015 (1.005-1.030); Urine pH 8.5 (5.0-7.0)
[2021-07-04] MEDS: D5 0.45 NS 1,000 ML IV SCH ×2 (03:35→13:35)
[2021-07-04] MEDS ORDERED: MORPHINE 2 MG/ML SYR IV PRN (03:35)
[2021-07-04] MEDS ORDERED: ONDANSETRON 4 MG/2 ML VIAL IV PRN (03:35)
[2021-07-04 05:08] VITALS: BMI 25.5
[2021-07-04] MEDS ORDERED: D5 0.45 NS 1,000 ML IV ONE ×2 (05:41→15:01)
[2021-07-04] MEDS: ENOXAPARIN 40 MG/0.4 ML SQ SCH (09:00)
[2021-07-04] MEDS: PIPER TAZO 3.375 GM in NA CHLORIDE 0.9% 100 ML IV SCH ×2 (09:00→17:00)
[2021-07-04] MEDS ORDERED: ENOXAPARIN 40 MG/0.4 ML SQ ONE (09:48)
--- NOTE | 2021-07-04 11:54 | RAD REPORT ---
EXAM DESCRIPTION: RAD - Abdomen 1 View (KUB) - 07/04/2021 11:25 am CLINICAL HISTORY: Abdomen pain. FINDINGS: Borderline dilated jejunum within the left abdomen without significant change. Air within the colon is diminished. These findings probably represent an adynamic ileus. Partial small bowel obstruction although possibl e is considered less likely. If the patient's symptoms persist followup abdominal plain film series w ould be recommended
[2021-07-05 00:41] VITALS: O2SAT 98
[2021-07-05] MEDS: PIPER TAZO 3.375 GM in NA CHLORIDE 0.9% 100 ML IV SCH ×3 (00:48→17:46)
[2021-07-05] MEDS: D5 0.45 NS 1,000 ML IV SCH ×3 (00:48→19:35)
[2021-07-05 01:28] LABS: Urine Appearance CLEAR (Clear); Urine Bilirubin NEGATIVE (Negative); Urine Blood NEGATIVE (Negative); Urine Color YELLOW (Yellow); Urine Glucose NEGATIVE (Negative); Urine Protein NEGATIVE (Negative); Urine Urobilinogen 0.2 mg/dL (0.2-1.0); Urine pH 5.5 (5.0-7.0)
[2021-07-05 01:30] LABS: Urine Microscopic Reflex NO UMIC
[2021-07-05 06:05] LABS: Absolute Lymphocytes (CBC) 1.1 K/uL (0.7-4.9); Hematocrit 38.1 % (39.6-49.0); Lymphocytes % 25.4 % (15.3-44.8); MPV 7.8 fL (7.6-11.3); RBC Red Blood Cell Count 4.02 M/uL (4.33-5.43)
[2021-07-05 06:30] LABS: Albumin 3.2 g/dL (3.4-5.0); Bilirubin Total 0.4 mg/dL (0.2-1.0); Potassium 3.9 mmol/L (3.5-5.1); Protein, Total 6.3 g/dL (6.4-8.2)
--- NOTE | 2021-07-05 06:30 | P.PN ---
Date of Service: 07/05/21 Subjective: improving, passing flatus, no pain hungry no new / worsening symptoms ROS: 10 point ROS as noted above, otherwise negative Physical exam GEN: Alert, oriented, NAD HEENT: Normal conjunctiva, sclera anicteric CV: Regular rate and rhythm, no edema Pulm: Nonlabored respirations on room air ABD: Soft, nontender, nondistended MSK: No joint tenderness Integumentary: No rashes Neuro: Normal speech, normal affect Problem List Abdominal pain, vomiting secondary to suspected partial small bowel obstruction versus ileus Hypertension Hyperlipidemia improving, passing flatus, no pain hungry KUB improved will start clears general surgery consulted, to re-eval later today suspect can advance diet as tolerated possible dc tomorrow morning restart home meds as appropriate Code: full Dispo: home, likely tomorrow Time Spent Managing Pts Care (In Minutes): 35
[2021-07-05 07:03] LABS: Blood Morphology Comment NOT SEEN (NOT SEEN); Platelet Estimate DECR; White Blood Cell Scan OK (OK)
--- NOTE | 2021-07-05 07:56 | RAD REPORT ---
EXAM DESCRIPTION: RAD - Abdomen 1 View (KUB) - 07/05/2021 5:32 am CLINICAL HISTORY: Abdomen pain. FINDINGS: More air is present within the colon than on the prior exam. Air is present within a few nondilated loops of small bowel. These findings probably indicate a resolving adynamic ileus or resolving partial small bowel obstruct ion.
[2021-07-05] MEDS: ENOXAPARIN 40 MG/0.4 ML SQ SCH (10:05)
[2021-07-05] MEDS: POTASSIUM CL SA 10 MEQ TAB PO ONE ×2 (10:52→10:58)
[2021-07-05] MEDS ORDERED: KCL 20 MEQ/100 mL IVPB 20 MEQ/100 ML BAG IV SCH (11:00)
--- NOTE | 2021-07-05 11:45 | RAD REPORT ---
EXAM DESCRIPTION: CT - Abdomen Pelvis W Contrast - 07/04/2021 6:56 am CLINICAL HISTORY: 80 years, Male, Abdominal pain, acute, nonlocalized COMPARISON: None. TECHNIQUE: Contrast-enhanced images of the abdomen and pelvis were performed utilizing 5 mm slice th ickness at 5 mm interval reconstruction from the lung bases to the ischial tuberosities after the adm inistration IV contrast. In addition multiplanar reformats in the coronal and sagittal plane were obtained and reviewed. This exam was performed according to our departmental dose-optimization protocol, which includes auto mated exposure control, adjustment of the mA and/or kV according to patient size and/or use of iterat eden reconstruction technique. FINDINGS: The lung bases demonstrate to be clear. There is a pacemaker in place. There is a tubular structure entering along the slightly right of midline upper abdomen corresponding to a ventriculoperitoneal shunt. A second inferior tubing is identified within the right flank/right lower quadrant correspond perhaps to a old ventricular peritoneal shunt. The liver, gallbladder, pancreas, spleen and adrenal glands demonstrate to be unremarkable, no focal lesions are noted. The kidneys demonstrate normal uptake of contrast media. No evidence for nephrolithiasis and/or hydro nephrosis. Grossly the unopacified stomach and large bowel demonstrate to be within normal limits. There are mildly prominent small bowel loops within the proximal left flank/left lower quadrant area. There is a small focal area of transition within the right lower quadrant on axial image 43-45. The large bowel demonstrate to be within normal limits. Findings could correspond to perhaps a ileus and/ or partial bowel obstruction. The urinary bladder demonstrate to be unremarkable. The prostate gland is normal. The aorta demon strate atherosclerotic disease. There is no retroperitoneal lymphadenopathy. There is no evidence f or ascites. The rest of the soft tissue and bony structures are within normal limits. IMPRESSION: Mildly prominent small bowel loops within the proximal left flank/left lower quadrant ar ea. There is a small focal area of transition within the right lower quadrant on axial -45. Findings could correspond to perhaps a ileus and/or partial bowel obstruction. Atherosclerotic disease of the aorta. Ventricular peritoneal shunts Electronically signed by: Julio César Madden MD 07/04/2021 1:17 AM CDT Due to temporary technical issues with the PACS/Fluency reporting system, reports are being signed by the in house radiologists without review as a courtesy to insure prompt reporting. The interpreting radiologist is fully responsible for the content of the report.
--- NOTE | 2021-07-05 13:52 | RAD REPORT ---
EXAM DESCRIPTION: US - Abdomen Exam Limited - 07/04/2021 12:05 am CLINICAL HISTORY: 80 years Male ABD PAIN TECHNIQUE: Transabdominal scans of the right upper quadrant of the abdomen with grayscale imaging an d Doppler. FINDINGS: Liver: Echogenic. Portal vein: Hepatopedal portal flow. Gallbladder: Layering sludge without associated gallbladder wall thickening or pericholecystic fluid. Biliary ducts: Common bile duct is normal measuring 3 mm. Pancreas: Visualized portion is unremarkable. Right kidney: No stone or hydronephrosis. Aorta and IVC: Normal as visualized. IMPRESSION: 1. No acute findings. 2. Hepatic steatosis. Electronically signed by: Aneesh Ralph MD 07/04/2021 12:44 AM CDT Due to temporary technical issues with the PACS/Fluency reporting system, reports are being signed by the in house radiologists without review as a courtesy to insure prompt reporting. The interpreting radiologist is fully responsible for the content of the report.
--- NOTE | 2021-07-05 14:12 | P.CNS ---
Date of Consult: 07/05/21 PC: This 30-year-old male presents the emergency room with abdominal pain for diagnosis and treatment. HPC: Patient has been having increasing abdominal pain over the last few days. Also has been passing gas but no bowel movements. States his abdomen is getting bigger. 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 Last weekend however was outside working in the yard, was sweating profusely. Denies any change in urinary status. Denies any shortness of breath or chest pains. O/E: Awake alert vital signs stable HEENT: Nonicteric Chest: Chest movement equal bilaterally Abd: Abdomen is soft [place]: Intact Data: Sent CT scan suggests possible ileus versus small bowel obstruction Impression: Patient does not have a surgical abdomen. I saw him yesterday but did not place a note. Today he is much improved, passing gas per rectum but still no bowel movement. He is hungry, and asking for regular food. Plan: I do not believe this patient will require surgical intervention at this time. He has been rehydrated and is ileus appears to be resolving. He has tolerated full liquids. I will give him some mineral oil today, imagine that his diet can be advanced and anticipates discharge in the a.m.
[2021-07-05] MEDS ORDERED: MINERAL OIL 30 ML UCUP PO ONE ×2 (14:13→16:00)
[2021-07-06] MEDS: PIPER TAZO 3.375 GM in NA CHLORIDE 0.9% 100 ML IV SCH ×2 (00:53→09:15)
[2021-07-06] MEDS: D5 0.45 NS 1,000 ML IV SCH ×2 (00:53→05:35)
[2021-07-06 04:24] LABS: Absolute Lymphocytes (CBC) 1.3 K/uL (0.7-4.9); Hematocrit 38.6 % (39.6-49.0); Lymphocytes % 28.9 % (15.3-44.8); MPV 7.5 fL (7.6-11.3); RBC Red Blood Cell Count 4.15 M/uL (4.33-5.43)
[2021-07-06 04:39] LABS: Albumin 3.3 g/dL (3.4-5.0); Bilirubin Total 0.4 mg/dL (0.2-1.0); Protein, Total 6.5 g/dL (6.4-8.2)
[2021-07-06 08:08] VITALS: BP 128/63; TEMP 97.9
[2021-07-06] MEDS: ENOXAPARIN 40 MG/0.4 ML SQ SCH (09:15)
--- NOTE | 2021-07-06 10:43 | P.DS ---
Admission Date: 07/04/21 Discharge Date: 07/06/21 Disposition: ROUTINE DISCHARGE Discharge Condition: FAIR Reason for Admission: SBO Brief History of Present Illness: 80-year-old male with history of hypertension, hyperlipidemia, previous pituitary tumor/pseudotumor cerebri presented to the emergency department for abdominal pain and vomiting. Patient reported severe left-sided abdominal pain. He vomited once, Patient was evaluated in the emergency department. He had a CT abdomen pelvis with contrast which demonstrated mildly prominent small loops of bowel within the proximal left flank/left lower quadrant area with a small focal area of transition within the right lower quadrant which could correspond to ileus versus partial small bowel obstruction. Also noted are the presence of ventricular peritoneal shunts. Labs unremarkable except CKD. Patient hospitalized for further evaluation and management of suspected partial small bowel obstruction versus ileus. Hospital Course: Problem List Abdominal pain, vomiting secondary to suspected partial small bowel obstruction versus ileus Hypertension Hyperlipidemia Chronic kidney disease stage III Patient admitted to the medical floor. Seen by general surgery Dr. Farley recommended only medical management. Patient symptoms improved. He had flatus. Repeat KUB showed resolution of bowel dilatation. Patient tolerated diet advancement. Bowel obstruction versus ileus have resolved and patient deemed stable for discharge. Vital Signs/Physical Exam: Temp Pulse Resp BP Pulse Ox 97.9 F 66 16 128/63 98 07/06/21 08:00 07/06/21 08:00 07/06/21 08:00 07/06/21 08:00 07/06/21 08:00 General: Alert, In no apparent distress, Oriented x3 HEENT: Mucous membr. moist/pink Neck: JVD not distended Respiratory: Clear to auscultation bilaterally, Normal air movement Cardiovascular: No edema, Regular rate/rhythm, Normal S1 S2, No murmurs Capillary refill: <2 Seconds Gastrointestinal: Normal bowel sounds, Soft and benign, Non-distended Musculoskeletal: No swelling, No tenderness Integumentary: No rashes Neurological: Normal strength at 5/5 x4 extr Laboratory Data at Discharge: WBC 4.4 K/uL (4.3-10.9) 07/06/21 03:36 Hgb 13.2 g/dL (13.6-17.9) L 07/06/21 03:36 Hct 38.6 % (39.6-49.0) L 07/06/21 03:36 Plt Count 141 K/uL (152-406) L 07/06/21 03:36 Sodium 143 mmol/L (136-145) 07/06/21 03:36 Potassium 4.0 mmol/L (3.5-5.1) 07/06/21 03:36 BUN 6 mg/dL (7-18) L 07/06/21 03:36 Creatinine 1.13 mg/dL (0.55-1.3) 07/06/21 03:36 Glucose 98 mg/dL (74-106) 07/06/21 03:36 Total Bilirubin 0.4 mg/dL (0.2-1.0) 07/06/21 03:36 AST 12 U/L (15-37) L 07/06/21 03:36 ALT 17 U/L (12-78) 07/06/21 03:36 Alkaline Phosphatase 47 U/L (45-117) 07/06/21 03:36 Lipase 145 U/L (73-393) 07/04/21 00:08 Home Medications: Apixaban [Eliquis] 5 mg PO BID 07/05/21 Atorvastatin Calcium [Lipitor] 40 mg PO BEDTIME 07/05/21 Cholecalciferol (Vitamin D3) [D3-50] 2,000 mcg PO DAILY 07/05/21 Cyanocobalamin [Vitamin B-12*] 1,000 mcg PO DAILY 07/05/21 Dronedarone [Multaq*] 400 mg PO BID 07/05/21 Fluoxetine HCl 10 mg PO DAILY 07/05/21 Folic Acid 1 mg PO DAILY 07/05/21 Diet: AHA Activity: Ad rosendo Followup: Unknown,U [Primary Care Provider] - 1 Week Time spent managing pt's care (in minutes): 33
== END 2021-07-06 11:47 | disposition home or self-care (01) | DRG 390 ==
LOC: ER 23:22 → ERHOLD 07-04 02:26 → 2ND 07-04 20:38
PROVIDERS: ADMIT Hospitalist; ATTEND Hospitalist
DX: K56.7 Ileus, unspecified (principal); E78.5 Hyperlipidemia, unspecified; I12.9 Hypertensive chronic kidney disease with stage 1 through stage 4 chronic kidney disease, or unspecified chronic kidney disease; N18.30 Chronic kidney disease, stage 3 unspecified; Z87.891 Personal history of nicotine dependence; Z95.0 Presence of cardiac pacemaker; Z20.822 Contact with and (suspected) exposure to COVID-19
CPT/HCPCS: 0240U; 36415; 74018; 74177; 76705; 80053; 81003; 83690; 84484; 85025; 93005; 96361; 96365; 96375; 99285; J1650; J2270; J2405; J2543; J3480; J7040; J7799; Q9967